=== PATIENT | female | born 1970 | race Caucasian/White ===

== ENCOUNTER 2017-11-10 21:34 | Emergency (ER) | payer OTHER ==
[~2017-11-10] VITALS: Ht 160 cm; Wt 116.6 kg
[2017-11-10] MEDS ORDERED: HYDROcodone/APAP 5/325MG 1 TAB TABLET PO ONE (22:15)
[2017-11-10] MEDS ORDERED: TETANUS AND DIPHTHERIA TOX/PF 0.5 ML VIAL. VAX IM ONE (22:15)
[2017-11-10] MEDS ORDERED: LIDOCAINE 2% TOPICAL JELLY 30GM TUBE. TP ONE (22:39)
[2017-11-10] MEDS ORDERED: ACET-704 PO (23:10)
[2017-11-10] MEDS ORDERED: NAPR-695 PO (23:10)
--- NOTE | 2017-11-10 23:10 | PHYS DOC ---
Past History Past Medical History: Cancer Past Surgical History: No Surgical History Alcohol Use: None Drug Use: None Adult General Chief Complaint Chief Complaint: LACERATION/AVULSION HPI HPI Patient is a 47-year-old female presents with complaints of right knee pain after slipping on stairs and hitting her knee. Patient also had her left thumb caught on a screw in the stairs which caused a laceration. Patient denies any other injuries, has no other complaints. Review of Systems Review of Systems Constitutional: Denies fever or chills [] Eyes: Denies injury HENT: Denies injury Respiratory: Denies cough or shortness of breath [] Cardiovascular: Denies injury GI: Denies abdominal pain, Denies injurya [] tanya [] Musculoskeletal: As per history of present illness[] Integument: Left thumb laceration distally Neurologic: Denies headache, focal weakness or sensory changes [] a [] All other systems were reviewed and found to be within normal limits, except as documented in this note. Current Medications Current Medications Current Medications Medications (Trade) Dose Ordered Sig/Graciela Start Time Stop Time Status Last Admin Dose Admin Acetaminophen/ Hydrocodone Bitart (Lortab 5/325) 1 tab 1X ONCE 11/10/17 22:15 11/10/17 22:16 DC 11/10/17 22:15 1 TAB Lidocaine HCl (Xylocaine 2% Topical 30gm Tube) 30 tong STK-MED ONCE 11/10/17 22:39 11/10/17 22:40 DC Tetanus/ Diphtheria Toxoids Adsorbed (Tenivac Vial) 0.5 ml ONCE ONCE 11/10/17 22:15 11/10/17 22:16 DC Allergies Allergies Allergies Coded Allergies Type Severity Reaction Last Updated Verified No Known Drug Allergies 11/10/17 No Physical Exam Physical Exam Constitutional: Well developed, well nourished, no acute distress, non-toxic appearance. [] HENT: Normocephalic, atraumatic, Eyes: PERRLA, EOMI, conjunctiva normal, no discharge. [] Neck: Normal range of motion, no tenderness, trachea midline Cardiovascular normal perfusion Lungs & Thorax: Bilateral breath sounds clear to auscultation, no tachypnea Abdomen: No distention, no tenderness Skin: Is in a laceration linear distal left thumb, bleeding controlled by pressure, Back: No tenderness, no CVA tenderness. [] Extremities: No tenderness, , ROM intact, no edema. no evidence of tendon or ligament injury, no deformity, no laxity. No signs of fracture or hemarthrosis. Neurologic: Alert and oriented X 3, normal motor function, , no focal deficits noted. [] Psychologic: Affect normal, judgement normal, mood normal. [] Current Patient Data Vital Signs Vital Signs Date Time Temp Pulse Resp B/P (MAP) Pulse Ox O2 Delivery O2 Flow Rate FiO2 11/10/17 22:15 18 98 11/10/17 21:59 98.2 80 Room Air EKG EKG [] Radiology/Procedures Radiology/Procedures [] Course & Med Decision Making Course & Med Decision Making Indication: Left thumb laceration Procedure: The patient was placed in the appropriate position and anesthesia around the centralized, cleaned, topical anesthetic applied. The area was then cleaned. The laceration was closed with 3 stitches of #5]. S] The wound area was then dressed Total repaired wound length: 2 cm. Other Items: None The patient tolerated the procedure well Complications: none.Pertinent Labs and Imaging studies reviewed. (See chart for details) [] Dragon Disclaimer Dragon Disclaimer This electronic medical record was generated, in whole or in part, using a voice recognition dictation system. Departure Departure: Impression: Primary Impression: Knee contusion Additional Impression: Laceration Disposition: 01 HOME, SELF-CARE Condition: STABLE Referrals: CHEYENNE CARDONA DO (PCP) Please follow-up with your doctor for recheck and reevaluation in 3-5 days Patient Instructions: Contusion, Laceration Care, Adult Additional Instructions: Suture removal in 7-10 days Scripts Acetaminophen With Codeine (TYLENOL WITH CODEINE #3 TABLET) 1 Each Tablet 1 TAB PO Q6HRS for 3 Days, #12 TAB Prov: Alma Delia QUICK MD 11/10/17 Naproxen (NAPROXEN) 375 Mg Tablet 1 TAB PO TID for 3 Days, #9 TAB 5 Refills Prov: Alma Delia QUICK MD 11/10/17 Problem Qualifiers Alma Delia QUICK MD Nov 10, 2017 23:10
[2017-11-10 23:14] VITALS: BP 120/73
--- NOTE | 2017-11-11 07:49 | RAD ---
Right knee 3 views. History: Injury after fall 3 views were taken of the right knee. There is no fracture or joint effusion or osseous abnormality. Impression: 1. Negative right knee.
== END 2017-11-10 23:17 | disposition home or self-care (01) ==
LOC: ER 21:34 → EEVIPCON 21:34 → ER 23:17
DX: S61.012A Laceration without foreign body of left thumb without damage to nail, initial encounter (principal); S80.01XA Contusion of right knee, initial encounter; W23.0XXA Caught, crushed, jammed, or pinched between moving objects, initial encounter; W01.198A Fall on same level from slipping, tripping and stumbling with subsequent striking against other object, initial encounter; Y93.89 Activity, other specified; Y99.8 Other external cause status; Y92.89 Other specified places as the place of occurrence of the external cause
CPT/HCPCS: 12001; 73562; 99284